=== PATIENT | female | born 1995 | race Caucasian/White ===

== ENCOUNTER 2018-03-11 22:31 | Emergency (ER) | payer SELFPAY ==
[~2018-03-11] VITALS: Ht 165.1 cm; Wt 67.3 kg
[2018-03-11 22:37] VITALS: BP 120/70
[2018-03-12] MEDS ORDERED: ACETAMINOPHEN 325MG TABLET PO ONE (00:15)
== END 2018-03-12 02:48 | disposition home or self-care (01) ==
LOC: ER 22:31
DX: J32.9 Chronic sinusitis, unspecified (principal); R07.81 Pleurodynia; F12.10 Cannabis abuse, uncomplicated; J06.9 Acute upper respiratory infection, unspecified; Z96.651 Presence of right artificial knee joint
CPT/HCPCS: 71045; 81025; 99283